=== PATIENT | male | born 1985 | race African-American/Black ===

== ENCOUNTER 2016-07-24 22:04 | Emergency (ER) | payer MEDICAID, OTHER ==
[~2016-07-24] VITALS: Ht 190.5 cm; Wt 95.5 kg
[2016-07-24] MEDS ORDERED: LISI-661 PO (22:14)
[2016-07-24] MEDS ORDERED: INSLAN SQ (22:14)
[2016-07-24] MEDS ORDERED: HALO1 PO (22:14)
[2016-07-24] MEDS ORDERED: ASPI-556 PO (22:14)
[2016-07-24] MEDS ORDERED: INSNOV SQ (22:14)
[2016-07-24] MEDS ORDERED: BENZ1TAB10 PO (22:14)
[2016-07-24 22:22] LABS: GLUCOSE,POINT OF CARE 245 MG/DL (70-110)
[2016-07-25 00:05] LABS: BASOPHILS # (AUTO) 0.06 K/uL (0.00-0.20); BASOPHILS % (AUTO) 1.2 % (0.0-2.0); EOSINOPHILS # (AUTO) 0.25 K/uL (0.00-0.70); EOSINOPHILS % (AUTO) 4.93 % (1.0-6.0); HEMATOCRIT 37.7 % (41-53); HEMOGLOBIN 12.5 g/dL (13.5-17.5); LYMPHOCYTES % (AUTO) 39.9 % (22.0-44.0); MEAN CORPUSCULAR HEMOGLOBIN 31.5 pg (26.0-34.0); MEAN CORPUSCULAR VOLUME 95 fL (80-100); MONOCYTES # (AUTO) 0.7 K/uL (0.1-1.0); MONOCYTES % (AUTO) 13.8 % (2.0-9.0); NEUTROPHILS # (AUTO) 2.1 K/uL (1.8-7.7); NEUTROPHILS % (AUTO) 40.2 % (40.0-70.0); PLATELET COUNT (AUTO) 240 K/uL (150-450); RED BLOOD CELL COUNT(AUTO) 3.96 MIL/uL (4.50-5.90); RED CELL DISTRIBUTION WIDTH 14.1 % (11.5-14.5); WHITE BLOOD COUNT (AUTO) 5.1 K/uL (4.5-11.0)
[2016-07-25 00:14] LABS: ANION GAP 8 mmol/L (8-16); CALCIUM, TOTAL 8.7 mg/dL (8.8-10.5); CARBON DIOXIDE 29 mmol/L (22-29); CHLORIDE 103 mmol/L (98-107); CREATININE 0.82 mg/dL (0.60-1.30); GLOMERULAR FILTR. RATE CALC > 60 mL/min (>60); POTASSIUM 4.4 mmol/L (3.5-5.1); SODIUM SERUM 140 mmol/L (136-145); UREA NITROGEN, BLOOD 16 mg/dL (7-18)
[2016-07-25 00:21] LABS: ALANINE AMINOTRANSFERASE 59 U/L (12-78); ALBUMIN 3.5 g/dL (3.4-5.0); ASPARTATE AMINOTRANSFERASE 20 U/L (15-37); BILIRUBIN,TOTAL 0.2 mg/dL (0.1-1.0); TOTAL PROTEIN, SERUM 7.1 g/dL (6.4-8.2)
[2016-07-25 01:51] LABS: APPEARANCE,URINE CLEAR (CLEAR); GLUCOSE, URINE (UA) 500 mg/dL (NEGATIVE); KETONES,URINE NEGATIVE (NEGATIVE); LEUKOCYTE ESTERASE ,URINE SMALL (NEGATIVE); OCCULT BLOOD,URINE NEGATIVE (NEGATIVE); PROTEIN,URINE TRACE (NEGATIVE)
[2016-07-25 01:59] LABS: RBC,URINE 0-2 /HPF (0-2); SQUAMOUS EPITHELIAL CELL,UR Rare /LPF (None Seen)
[2016-07-25 02:21] VITALS: BP 129/81
== END 2016-07-25 02:24 | disposition home or self-care (01) ==
LOC: EMS 22:09
DX: R00.2 Palpitations (principal); I10 Essential (primary) hypertension; E11.9 Type 2 diabetes mellitus without complications; F17.210 Nicotine dependence, cigarettes, uncomplicated; F15.90 Other stimulant use, unspecified, uncomplicated; Z79.82 Long term (current) use of aspirin; Z79.4 Long term (current) use of insulin
CPT/HCPCS: 82962; 87086; 93005; 99285

== ENCOUNTER 2016-07-27 14:25 | Emergency (ER) | payer OTHER ==
[~2016-07-27] VITALS: Ht 190.5 cm; Wt 90.9 kg
[~2016-07-27 14:25] MED LIST: ASPI-556 PO; BENZ1TAB10 PO; HALO1 PO; INSLAN SQ; INSNOV SQ; LISI-661 PO
[2016-07-27 14:41] LABS: GLUCOSE,POINT OF CARE 249 MG/DL (70-110)
[2016-07-27] MEDS ORDERED: HYDROCODONE/ACETAMINOPHEN 5-325 MG TABLET PO ONE (15:00)
[2016-07-27 15:34] VITALS: BP 157/98
== END 2016-07-27 15:38 | disposition home or self-care (01) ==
LOC: EMS 14:28
DX: K03.81 Cracked tooth (principal); K02.9 Dental caries, unspecified; E11.9 Type 2 diabetes mellitus without complications; I10 Essential (primary) hypertension; F15.90 Other stimulant use, unspecified, uncomplicated; F17.210 Nicotine dependence, cigarettes, uncomplicated; Z79.4 Long term (current) use of insulin
CPT/HCPCS: 82962; 99283

== ENCOUNTER 2016-07-27 17:39 | Emergency (ER) | payer OTHER ==
[~2016-07-27] VITALS: Ht 182.9 cm; Wt 97.0 kg
[2016-07-27 17:45] VITALS: BP 162/108
== END 2016-07-27 18:15 | disposition left against medical advice (07) ==
LOC: EMS 17:40
DX: F31.9 Bipolar disorder, unspecified (principal); E11.9 Type 2 diabetes mellitus without complications; I10 Essential (primary) hypertension; Z79.4 Long term (current) use of insulin; F15.90 Other stimulant use, unspecified, uncomplicated; F17.210 Nicotine dependence, cigarettes, uncomplicated
CPT/HCPCS: 99281

== ENCOUNTER 2016-07-31 11:08 | Emergency (ER) | payer OTHER ==
[~2016-07-31] VITALS: Ht 190.5 cm; Wt 88.2 kg
[2016-07-31 13:37] VITALS: BP 119/82
== END 2016-07-31 13:39 | disposition home or self-care (01) ==
LOC: EMS 11:10
DX: E11.9 Type 2 diabetes mellitus without complications (principal); J06.9 Acute upper respiratory infection, unspecified; K08.89 Other specified disorders of teeth and supporting structures; I10 Essential (primary) hypertension; F17.210 Nicotine dependence, cigarettes, uncomplicated; Z76.0 Encounter for issue of repeat prescription; Z79.4 Long term (current) use of insulin
CPT/HCPCS: 82962; 99283